=== PATIENT | male | born 1995 | race Caucasian/White ===

== ENCOUNTER 2021-06-13 10:03 | Emergency (ER) | payer OTHER ==
[~2021-06-13] VITALS: Ht 180.3 cm; Wt 70.8 kg
[2021-06-13] MEDS ORDERED: DOXEPIN HC10 MG/1 ML PO (10:24)
== END 2021-06-13 15:05 | disposition home or self-care (01) ==
LOC: ER 10:03
DX: K52.9 Noninfective gastroenteritis and colitis, unspecified (principal)